=== PATIENT | male | born 1980 | race Caucasian/White ===

== ENCOUNTER 2018-07-25 22:20 | Emergency (ER) | payer SELFPAY ==
[2018-07-25] MEDS: LORAZEPAM 2 MG INJ IM (23:21)
[2018-07-25] MEDS: KETOROLAC 60 MG INJ IM (23:21)
[2018-07-25] MEDS: HYDROCODONE/APAP (10/325) TAB PO (23:21)
== END 2018-07-26 00:58 | disposition home or self-care (01) ==
LOC: E/R 22:20
DX: S70.02XA Contusion of left hip, initial encounter (principal); F17.210 Nicotine dependence, cigarettes, uncomplicated; W18.30XA Fall on same level, unspecified, initial encounter; Y92.9 Unspecified place or not applicable
CPT/HCPCS: 72100; 73510; 96372; 99284-25

== ENCOUNTER 2019-04-10 19:36 | Emergency (ER) | payer SELFPAY ==
[2019-04-10] MEDS: PROMETHAZINE/CODEINE 5ML CUP PO (20:52)
[2019-04-10] MEDS: predniSONE 20 MG TAB PO (20:52)
[2019-04-10] MEDS: ALBUTEROL 0.083% (NEB) 2.5 MG/3 ML AMP HHN (21:15)
== END 2019-04-10 22:25 | disposition home or self-care (01) ==
LOC: FTE 19:36
DX: J40 Bronchitis, not specified as acute or chronic (principal)
CPT/HCPCS: 94664; 99283-25